=== PATIENT | male | born 1950 | race Hispanic/Latino ===

== ENCOUNTER 2021-05-30 17:20 | Emergency (ER) | payer MEDICARE, OTHER ==
[~2021-05-30] VITALS: Ht 162.6 cm; Wt 77.6 kg
[~2021-05-30 17:20] MED LIST: AMARYL; CIPRO500 MG PO; CRESTOR; CRESTOR10 MG PO; GLIMEPIRIDE2 MG PO; METFORMIN; METFORMIN HCL850 MG PO; METOPROLOL; METOPROLOL TART25 MG PO; PLAVIX75 MG PO; PRILOSEC40 MG PO; ULTRACET TABLE1 EACH PO; VASOTEC; VASOTEC10 MG PO
[2021-05-30 17:40] LABS: BASOPHILS # (AUTO) 0.1 (0.0-0.1); BASOPHILS % 0.5 % (0.0-1.0); EOSINOPHILS # (AUTO) 0.1 (0.0-0.4); EOSINOPHILS % 1.4 % (0.0-6.0); HEMATOCRIT 38.2 % (38.2-49.6); HEMOGLOBIN 13.1 g/dL (14.0-18.0); LYMPHOCYTES # (AUTO) 2.5 (1.0-3.2); LYMPHOCYTES % 25.5 % (18.0-39.1); MEAN CORPUSCULAR HEMOGLOBIN 30.8 pg (28-32); MEAN CORPUSCULAR HGB CONC 34.3 g/dL (31-35); MEAN CORPUSCULAR VOLUME 89.9 fL (81-99); MONOCYTES # (AUTO) 0.7 (0.2-0.8); MONOCYTES % 7.4 % (4.4-11.3); NEUTROPHILS # (AUTO) 6.3 (2.1-6.9); NEUTROPHILS % 64.8 % (38.7-80.0); PLATELET COUNT 149 x10e3/uL (140-360); RED BLOOD COUNT 4.25 x10e6/uL (4.3-5.7); RED CELL DISTRIBUTION WIDTH 12.8 % (11.7-14.4)
[2021-05-30] MEDS ORDERED: FUROSEMIDE20 MG PO (17:51)
[2021-05-30] MEDS ORDERED: CARVEDILOL3.125 MG PO (17:51)
[2021-05-30] MEDS ORDERED: TIZANIDINE HCL2 MG PO (17:51)
[2021-05-30] MEDS ORDERED: HYDROCHLOROTH12.5 MG PO (17:51)
[2021-05-30 17:55] LABS: ALBUMIN 4.1 g/dL (3.5-5.0); ALBUMIN/GLOBULIN RATIO 1.6 (0.8-2.0); ANION GAP 12.6 mmol/L (8-16); CALCIUM 8.7 mg/dL (8.4-10.2); CREATININE, SERUM 1.32 mg/dL (0.72-1.25); POTASSIUM 3.6 mmol/L (3.5-5.1)
[2021-05-30 18:01] LABS: INR 1.02
[2021-05-30] MEDS ORDERED: NITROGLYCERIN 2% OINT 1 GM PKT TOP ONE (19:00)
[2021-05-30] MEDS ORDERED: ASPIRIN 81 MG CHEW TAB PO ONE (19:00)
== END 2021-05-30 23:59 | disposition home or self-care (01) ==
LOC: ER 17:38
DX: R07.9 Chest pain, unspecified (principal); E11.65 Type 2 diabetes mellitus with hyperglycemia; I10 Essential (primary) hypertension; I25.10 Atherosclerotic heart disease of native coronary artery without angina pectoris; E78.00 Pure hypercholesterolemia, unspecified; K21.9 Gastro-esophageal reflux disease without esophagitis; I25.2 Old myocardial infarction; Z95.5 Presence of coronary angioplasty implant and graft; Z20.822 Contact with and (suspected) exposure to COVID-19
CPT/HCPCS: 36415; 71045; 80053; 83690; 84484; 85025; 85610; 93005; 99283; U0002